=== PATIENT | female | born 1980 | race Caucasian/White ===

== ENCOUNTER 2021-10-23 05:41 | Outpatient (CLI) | payer OTHER ==
[~2021-10-23] VITALS: Ht 165.1 cm; Wt 63.2 kg
== END 2021-10-23 12:14 | disposition home or self-care (01) ==
LOC: PREOP 05:41
PROVIDERS: ATTEND Obstetrics & Gynecology
DX: Z01.818 Encounter for other preprocedural examination (principal)

== ENCOUNTER 2021-10-30 06:07 | Day surgery (SDC) | payer OTHER ==
[~2021-10-30] VITALS: Ht 165.1 cm; Wt 63.2 kg
[2021-10-30] VITALS (11 sets, daily range): BP systolic 92–115; BP diastolic 54–69
[2021-10-30] MEDS ORDERED: LACTATED RINGERS 1,000 ML IV PRN (06:15)
[2021-10-30] MEDS ORDERED: LIDOCAINE PF 2% 5 ML (XYLOCAINE) VIAL ONE (07:00)
[2021-10-30] MEDS ORDERED: MIDAZOLAM 2 MG/2 ML (VERSED) VIAL ONE (07:00)
[2021-10-30] MEDS ORDERED: ONDANSETRON 4 MG/2 ML (SDV) Z0FRAN ONE ×2 (07:00→07:08)
[2021-10-30] MEDS ORDERED: proPOfol 200 MG/20 ML (DIPRIVAN) VIAL IV ONE (07:00)
[2021-10-30] MEDS ORDERED: fentaNYL INJ 100 MCG/2 ML AMP ONE (07:00)
[2021-10-30] MEDS ORDERED: BUPIVACAINE 0.25% 30 ML (SENSORCAINE) VIAL ONE (07:01)
[2021-10-30 07:02] LABS: BASOPHILS # (AUTO) 0.1 10^3/uL (0.0-0.1); BASOPHILS % (AUTO) 1 % (0-10); EOSINOPHILS # (AUTO) 0.6 10^3/uL (0.0-0.3); EOSINOPHILS % (AUTO) 10 % (0-10); HEMATOCRIT 36 % (35-52); HEMOGLOBIN 11.6 g/dL (11.5-16.0); LYMPHOCYTES # (AUTO) 1.8 10^3/uL (1.0-4.0); LYMPHOCYTES % (AUTO) 32 % (12-44); MEAN CORPUSCULAR HEMOGLOBIN 29 pg (25-34); MEAN CORPUSCULAR HGB CONC 33 g/dL (32-36); MEAN CORPUSCULAR VOLUME 87 fL (80-99); MEAN PLATELET VOLUME 10.4 fL (9.0-12.2); MONOCYTES # (AUTO) 0.4 10^3/uL (0.0-1.0); MONOCYTES % (AUTO) 7 % (0-12); NEUTROPHILS # (AUTO) 2.9 10^3/uL (1.8-7.8); NEUTROPHILS % (AUTO) 50 % (42-75); PLATELET COUNT 264 10^3/uL (130-400); WHITE BLOOD COUNT 5.7 10^3/uL (4.3-11.0)
[2021-10-30] MEDS ORDERED: SCOPOLAMINE 1.5 MG (TRANSDERM-SCOP) PATCH ONE (07:08)
[2021-10-30] MEDS ORDERED: FAMOTIDINE 20MG/2ML IV (PEPCID) ONE (07:08)
[2021-10-30] MEDS ORDERED: PROPOFOL INJECTION 50 ML IV ONE (07:12)
--- NOTE | 2021-10-30 07:17 | Progress Note-Pre Operative ---
Pre-Operative Progress Note H&P Reviewed The H&P was reviewed, patient examined and no changes noted. Date Seen by Provider: Oct 30, 2021 Time Seen by Provider: 07:05 Date H&P Reviewed: Oct 30, 2021 Time H&P Reviewed: 07:10 Pre-Operative Diagnosis: AUB, Menorrhagia CIELO SMITH DO Oct 30, 2021 07:17
[2021-10-30] MEDS ORDERED: ACHD5005 PO (07:18)
[2021-10-30] MEDS ORDERED: IBUP-1773 PO (07:18)
--- NOTE | 2021-10-30 07:20 | Discharge Inst-Women's Service ---
Discharge Inst-Women's Serv Depart Medication/Instructions New, Converted or Re-Newed RX: Transmitted to Pharmacy Problems Reviewed?: Yes Consults/Follow Up Additional Follow Up: Yes Orders/Referrals Dr. Smith in 7-10 days Activity Activity: Activity as Tolerated Driving Instructions: No Driving for 1 Week NO SMOKING: NO SMOKING Nothing Inside Vagina: No Douching, No [place], No Tampons Diet Discharge Diet: No Restrictions Symptoms to Report to : Bleeding Excessive, Pain Increased, Fever Over 101 Degrees F, Vaginal Bleeding Increase, Questions/Concerns For Any Problems or Questions: Contact Your Physician CIELO SMITH DO Oct 30, 2021 07:20
[2021-10-30] MEDS ORDERED: morphine INJ 10 MG/ML 1ML (SYR OR VIAL) IVP ONE (08:00)
[2021-10-30] MEDS ORDERED: ONDANSETRON 4 MG/2 ML (SDV) Z0FRAN IVP PRN (08:00)
--- NOTE | 2021-10-30 09:56 | Anesthesia-General Post-Op ---
General Patient Condition Mental Status/LOC: Same as Preop Cardiovascular: Satisfactory Nausea/Vomiting: Absent Respiratory: Satisfactory Pain: Controlled Complications: Absent Post Op Complications Complications None Follow Up Care/Instructions Patient Instructions None needed. Anesthesia/Patient Condition Patient Condition Patient was doing well after the procedure, no complaints, stable vital signs, no apparent adverse anesthesia problems. She is already discharged to home. PEDRITO ANGELES DO Oct 30, 2021 09:56
--- NOTE | 2021-10-30 11:56 | OPERATIVE REPORT ---
DATE OF SERVICE: PREOPERATIVE DIAGNOSIS: A 40-year-old female with abnormal uterine bleeding. POSTOPERATIVE DIAGNOSIS: A 40-year-old female with abnormal uterine bleeding. PROCEDURE: D and C. SURGEON: Lauro Arteaga DO ANESTHESIA: General LMA. ESTIMATED BLOOD LOSS: Minimal. URINE OUTPUT: 20 mL drained at the end of the procedure. FLUIDS: 400 mL lactated Ringer's solution. FINDINGS: Grossly normal appearing external female genitalia with a moderate amount of endometrial curettings suspicious for polypoid formation. SPECIMEN SENT: Endometrial curettings. INDICATIONS FOR PROCEDURE: This 40-year-old female is a patient who had sought care in my office for definitive therapy of her abnormal heavy bleeding and reported that her periods have become progressively worse and wished to proceed with more definitive measures; however, discussed with the patient due to her age and change in bleeding pattern, the next step would be an endometrial sampling. We decided to proceed with D and C for the potential for curative and its diagnostic purposes. Risks of the procedure were discussed with the patient in detail and after all of her questions were answered, consent was obtained in the preoperative area, the patient was taken to the operating room. OPERATIVE REPORT IN DETAIL: Once in the operating room, anesthesia was found to be adequate. She was placed in dorsal lithotomy position, prepped and draped in normal sterile fashion. Timeout was performed. A weighted speculum inserted to the patient's vagina. Right angle retractor was used to visualize the cervix, the uterus was sounded to be 8 cm. I perform a paracervical block at 3 and 9 o'clock positions on the cervix. Care was taken to aspirate for injecting 5 mL of 0.25% Marcaine injected into each site. I then gently dilated the cervix using Hanks dilators to maximum dilatation approximately 1 cm, at which point I performed a curettage of the endometrial cavity. Methodically, clearing all surfaces of the endometrium and sending as endometrial curettings, after which there was no active bleeding noted from any of my dissection planes. There was no active bleeding from the cervix. All instruments were removed from the patient's vagina. The patient tolerated the procedure well and sent to recovery area in stable condition. Lap and sponge counts were correct at the end of the procedure. Instrument count was correct as well. Job ID: [id number] DocumentID: [id number] Dictated Date: 10/30/2021 08:09:08 Residential Sales Representative Date: 10/30/2021 10:47:16 Dictated By: DO LISE DAVIS
== END 2021-10-30 10:08 ==
LOC: SDC 06:07
PROVIDERS: ATTEND Obstetrics & Gynecology
DX: N84.0 Polyp of corpus uteri (principal); N84.1 Polyp of cervix uteri; Z98.890 Other specified postprocedural states
CPT/HCPCS: 36415; 84703; 85025; 86850; 86900; 86901; 87081; 88305